=== PATIENT | male | born 1995 | race Caucasian/White ===

== ENCOUNTER 2019-11-25 13:00 | Emergency (ER) | payer BC, OTHER, SELFPAY ==
--- NOTE | ~2019-11-25 | XR_ITS ---
XR elbow LT min 3V DATE: 11/25/2019 13:39 INDICATION: Injury, left elbow pain TECHNIQUE: 4 views COMPARISON: None FINDINGS: No fracture or dislocation, periosteal reaction or bone destruction or joint effusion. Join t spaces are well preserved. IMPRESSION: Negative Reviewed, dictated and finalized at location A. IMPRESSION: Negative
[2019-11-25 13:03] VITALS: BP 169/87; PULSE 99; RESP 17; TEMP 36.1; O2SAT 98
--- NOTE | 2019-11-25 13:31 | ED.GENADULT ---
HPI - General Adult General Chief complaint: Extremity Injury, Upper Stated complaint: SOMETHING CRACKED IN MY ELBOW Time Seen by Provider: 11/25/19 13:11 History of Present Illness HPI narrative: Patient is a 24 y/o male complaining of left elbow after lifting a heavy box at work last night. He states that his pain is sharp and rates it as 4-5/10. There is no pain radiation. Ice help with the pain. Related Data Home Medications Medication Instructions Recorded Confirmed buspirone mg 11/25/19 citalopram mg 11/25/19 hydroxyzine HCl 11/25/19 naltrexone mg 11/25/19 quetiapine 11/25/19 Allergies Allergy/AdvReac Type Severity Reaction Status Date / Time No Known Allergies Allergy Verified 11/25/19 13:05 Review of Systems Constitutional: Constitutional: Denies chills, Denies fever(s), Denies headache(s) and Denies weakness Eyes: Eyes: Denies blurry vision ENT: Denies headache(s) and Denies neck pain Cardiovascular: Cardiovascular: Denies chest pain and Denies dyspnea Respiratory: Respiratory: Denies cough and Denies dyspnea Gastrointestinal: Gastrointestinal: Denies abdominal pain, Denies diarrhea, Denies nausea and Denies vomiting Genitourinary: Genitourinary: Denies hematuria and Denies dysuria Musculoskeletal: Musculoskeletal: Denies back pain, Reports arthralgias (left elbow pain) and Denies neck pain Neurologic: Denies headache(s) and Denies weakness PMFSH Social History Social History Gender identity (if verbalized by the patient): Male Exam Const: General: no acute distress and well developed Orientation/consciousness: oriented to person, oriented to place, oriented to time and patient oriented x3 HENMT: Head: normocephalic Ears: external ears normal General nose exam: Normal external nose present Eyes: General: appearance normal, both eyes and all related structures Conjunctivae: conjunctivae normal Neck: Neck: normal visual inspection and full ROM Chest: Chest palpation & inspection: normal inspection of the chest and tenderness Resp: Effort & Inspection: normal respiratory effort GI: Inspection: normal to inspection Skin: General skin exam: normal color and turgor normal Extrem: General: normal to inspection, full ROM and no pedal edema Left upper extremity: elbow/forearm tenderness (left olecranon) Psych: Appearance: grossly normal Mental Status: mental status grossly normal Affect: normal affect Course Vital Signs Vital signs: Vital Signs Temperature 36.1 C L 11/25/19 13:03 Pulse Rate 99 11/25/19 13:03 Respiratory Rate 17 11/25/19 13:03 Blood Pressure 169/87 H 11/25/19 13:03 Pulse Oximetry 98 11/25/19 13:03 Temperature 36.1 C L 11/25/19 13:03 Pulse Rate 104 H 11/25/19 15:21 Respiratory Rate 17 11/25/19 15:21 Blood Pressure 142/92 H 11/25/19 15:21 Pulse Oximetry 97 11/25/19 15:21 Medical Decision Making Vital Signs Vital Signs: Vital Signs Temperature 36.1 C L 11/25/19 13:03 Pulse Rate 99 11/25/19 13:03 Respiratory Rate 17 11/25/19 13:03 Blood Pressure 169/87 H 11/25/19 13:03 Pulse Oximetry 98 11/25/19 13:03 Temperature 36.1 C L 11/25/19 13:03 Pulse Rate 104 H 11/25/19 15:21 Respiratory Rate 17 11/25/19 15:21 Blood Pressure 142/92 H 11/25/19 15:21 Pulse Oximetry 97 11/25/19 15:21 Discharge Plan Discharge Clinical Impression: Elbow pain, left Patient Disposition: Home, Self-Care Condition: Stable Instructions: Elbow Sprain (ED) Prescriptions: No Action citalopram 40 mg tablet RF: 0 naltrexone 50 mg tablet RF: 0 buspirone 10 mg tablet RF: 0 hydroxyzine HCl 25 mg tablet RF: 0 quetiapine 50 mg tablet RF: 0 Follow-up/Referrals: Higinio Romero MD [Physician] - 1 Week PHYSICIAN,CHECK VIEWER [Primary Care Provider] - Stand Alone Forms: Work/School Release IP Discharg
[2019-11-25 15:21] VITALS: BP 142/92; PULSE 104; RESP 17; O2SAT 97
== END 2019-11-25 15:22 | disposition home or self-care (01) ==
PROVIDERS: Emergency Provider Emergency Medicine
DX: M25.522 Pain in left elbow (principal); X50.0XXA Overexertion from strenuous movement or load, initial encounter
CPT/HCPCS: 73080; 99283

== ENCOUNTER 2022-02-28 09:10 | Outpatient (CLI) | payer OTHER, SELFPAY ==
--- NOTE | 2022-03-28 15:01 | WPDSLEEPSTUD ---
Sleep Study Date of Study: 02/28/22 Ordering Provider: KATHY Simmons Interpreting Physician: Jessica Sanches DO Sleep Study Type: Polysomnogram Height: 1.7 m Weight: 154.675 kg Body Mass Index: 53.4 Neck Circumference (inches): 17.5 [place]: 15 Reason for Sleep Study Sleep-onset and sleep-maintenance insomnia Sleep History The patient is a 27-year-old female with anxiety, migraines, hypersomnia, depression, alcoholism, hypertension, seasonal allergies and tobacco use that had a sleep study ordered by the pulmonary group for evaluation of insomnia. The patient rarely awakens from sleep short of breath. She rarely awakens at night with heartburn, belching or cough. She constantly snores loud enough that others complain. She constantly has trouble sleeping when he has a cold. She occasionally wakes up gasping for air throughout the night. She frequently has breathing problems observed by himself or others. She frequently sweat or irregular heartbeats during the night. She frequently falls asleep during the day but never while driving. She only experiences loss of muscle tone when extremely emotional. She constantly has trouble at school or work due to sleepiness. She occasionally feels unable to move from waking up or falling asleep. She frequently experiences vivid dreamlike scenes upon awakening or falling asleep. She frequently feels afraid of going to sleep. She constantly has nightmares and frequently remembers her dreams. She constantly has thoughts racing through her mind. She constantly feels sad, depressed and anxious. She rarely has muscular tension. She frequently notices parts of her body jerk. She occasionally kicks during the night. She rarely has crawling and aching feelings in her legs and rarely has leg pain during the night. She occasionally grinds her teeth during sleep and occasionally awakens with morning jaw pain. She is occasionally bothered by pain during the day but rarely awakened by pain during the night. She frequently wakes up feeling stiff in the morning. She occasionally wakes up with sore or achy muscles. She frequently wakes up with pain in the neck, spine or other joints. She goes to bed between midnight to 2:00 a.m. on both weekdays and weekends. It takes her 30 minutes to an hour to fall asleep. She wakes up 2-3 times throughout the night. When she awakens, she will use the restroom and get a drink. She is able to fall asleep within 5-10 minutes. She wakes up between 10:00 a.m. to 1:00 p.m. on both weekdays and weekends. She will stay in bed for 30 minutes after waking up in the morning. She usually gets 5-12 hours of sleep per night. She currently lives alone. She does not consume any caffeinated beverages within 2 hours of bedtime. She does not engage in physical exercise before bedtime. She will read and watch television before falling asleep. She will take naps in the afternoon or the evening but they are not refreshing. She does not consume any caffeinated beverages. She denies tobacco and alcohol use. She currently uses an unspecified recreational drugs. [facility] Past Medical History Medical History Anxiety Hypersomnia, unspecified Migraine headache Family History Family History Mother Alcoholism Depression Anxiety Father Asthma Anxiety Depression Other Alcoholism Cancer Depression Anxiety Other Diabetes mellitus Hypertension Depression Anxiety Grandparent Depression Anxiety Diabetes mellitus Cancer Alcoholism Social History Social History Smoking status: Current some day smoker (No tobacco use - MJ use) Gender identity (if verbalized by the patient): Male Medications Home Medications Medication Instructions Recorded Confirmed Type buspi
[2022-03-28 15:16] VITALS: BMI 53.4
--- NOTE | 2022-06-22 08:19 | SLEEP ---
NEW CALLS [id number]
== END 2022-03-01 07:14 | disposition home or self-care (01) ==
LOC: ANHCSM 09:24
PROVIDERS: Visit Provider Physician Assistant
DX: G47.10 Hypersomnia, unspecified (principal); G47.33 Obstructive sleep apnea (adult) (pediatric)
CPT/HCPCS: 95810

== ENCOUNTER → 2022-06-16 08:43 | Outpatient (CLI) | payer OTHER, SELFPAY ==
--- NOTE | 2022-07-11 18:10 | WPDSLEEPSTUD ---
Sleep Study Date of Study: 06/16/22 Ordering Provider: KATHY Simmons Interpreting Physician: Jessica Sanches DO Sleep Study Type: CPAP Titration Height: 1.73 m Weight: 157.397 kg Body Mass Index: 52.7 Neck Circumference (inches): 17 [place]: 15 Reason for Sleep Study The patient had a polysomnogram done on 02/28/2022 that showed an overall AHI of 13.3 with desaturation down to 82%. Sleep History The patient is a 27-year-old female with anxiety, migraines, hypersomnia, depression, alcoholism, hypertension, seasonal allergies and tobacco use that had a sleep study ordered by the pulmonary group for evaluation of insomnia.? The patient rarely awakens from sleep short of breath.? She rarely awakens at night with heartburn, belching or cough.? She constantly snores loud enough that others complain.? She constantly has trouble sleeping when he has a cold.? She occasionally wakes up gasping for air throughout the night.? She frequently has breathing problems observed by himself or others.? She frequently sweat or irregular heartbeats during the night.? She frequently falls asleep during the day but never while driving.? She only experiences loss of muscle tone when extremely emotional.? She constantly has trouble at school or work due to sleepiness.? She occasionally feels unable to move from waking up or falling asleep.? She frequently experiences vivid dreamlike scenes upon awakening or falling asleep.? She frequently feels afraid of going to sleep.? She constantly has nightmares and frequently remembers her dreams.? She constantly has thoughts racing through her mind.? She constantly feels sad, depressed and anxious.? She rarely has muscular tension.? She frequently notices parts of her body jerk.? She occasionally kicks during the night.? She rarely has crawling and aching feelings in her legs and rarely has leg pain during the night.? She occasionally grinds her teeth during sleep and occasionally awakens with morning jaw pain.? She is occasionally bothered by pain during the day but rarely awakened by pain during the night.? She frequently wakes up feeling stiff in the morning.? She occasionally wakes up with sore or achy muscles.? She frequently wakes up with pain in the neck, spine or other joints.? She goes to bed between midnight to 2:00 a.m. on both weekdays and weekends.? It takes her 30 minutes to an hour to fall asleep.? She wakes up 2-3 times throughout the night.? When she awakens, she will use the restroom and get a drink.? She is able to fall asleep within 5-10 minutes.? She wakes up between 10:00 a.m. to 1:00 p.m. on both weekdays and weekends.? She will stay in bed for 30 minutes after waking up in the morning.? She usually gets 5-12 hours of sleep per night.? She currently lives alone.? She does not consume any caffeinated beverages within 2 hours of bedtime.? She does not engage in physical exercise before bedtime.? She will read and watch television before falling asleep.? She will take naps in the afternoon or the evening but they are not refreshing. She does not consume any caffeinated beverages.? She denies tobacco and alcohol use.? She currently uses an unspecified recreational drugs. [facility] Past Medical History Medical History Anxiety Hypersomnia, unspecified Migraine headache Family History Family History Mother Alcoholism Depression Anxiety Father Asthma Anxiety Depression Other Alcoholism Cancer Depression Anxiety Other Diabetes mellitus Hypertension Depression Anxiety Grandparent Depression Anxiety Diabetes mellitus Cancer Alcoholism Social History Social History Smoking status: Current some day smoker (No tobacco use - MJ use) Gender identity (if verbalized by the patient): Male Medications Home
[2022-07-11 18:17] VITALS: BMI 52.7
== END ==
PROVIDERS: Visit Provider Physician Assistant
DX: G47.33 Obstructive sleep apnea (adult) (pediatric) (principal); I10 Essential (primary) hypertension; Z72.0 Tobacco use; F41.8 Other specified anxiety disorders
CPT/HCPCS: 95811